=== PATIENT | female | born 1980 | race African-American/Black ===

== ENCOUNTER 2018-07-25 17:51 | Emergency (ER) | payer OTHER ==
[~2018-07-25] VITALS: Ht 160 cm; Wt 98.0 kg
[~2018-07-25 17:51] MED LIST: ALEVE220 MG PO; NORCO 5-325 TA1 EACH PO
[2018-07-25] MEDS ORDERED: CONTRAVE ER 8-1 EACH PO (18:07)
[2018-07-25 18:18] LABS: URINE BILIRUBIN NEGATIVE (Negative); URINE BLOOD 2+ (Negative); URINE CLARITY CLEAR; URINE COLOR YELLOW; URINE GLUCOSE-RANDOM* NEGATIVE (Negative); URINE KETONES NEGATIVE (Negative); URINE LEUKOCYTES-REFLEX NEGATIVE (Negative); URINE NITRITE-REFLEX NEGATIVE (Negative); URINE PROTEIN (DIPSTICK) NEGATIVE (Negative)
[2018-07-25 18:27] LABS: BACTERIA-REFLEX None Seen /HPF (None Seen); CASTS None Seen /LPF (None Seen); CRYSTALS None Seen /LPF (None Seen); SQUAMOUS None Seen /LPF (0-3); URINE RBC 3-10 Few /HPF (0-2); URINE WBC-REFLEX 0-5 Rare /HPF (0-5)
[2018-07-25 19:21] VITALS: BP 142/90
== END 2018-07-25 19:35 | disposition home or self-care (01) ==
LOC: ER 17:51
PROVIDERS: Physician Assistant
DX: Z20.2 Contact with and (suspected) exposure to infections with a predominantly sexual mode of transmission (principal); Z98.890 Other specified postprocedural states

== ENCOUNTER 2018-11-22 18:00 | Emergency (ER) | payer OTHER ==
[~2018-11-22] VITALS: Ht 160 cm; Wt 122.5 kg
[~2018-11-22 18:00] MED LIST changes: +CONTRAVE ER 8-1 EACH PO
[2018-11-22 18:28] LABS: URINE BILIRUBIN NEGATIVE (Negative); URINE BLOOD NEGATIVE (Negative); URINE CLARITY CLEAR; URINE COLOR YELLOW; URINE GLUCOSE-RANDOM* TRACE (Negative); URINE KETONES NEGATIVE (Negative); URINE LEUKOCYTES-REFLEX NEGATIVE (Negative); URINE NITRITE-REFLEX NEGATIVE (Negative); URINE PROTEIN (DIPSTICK) NEGATIVE (Negative); URINE SPECIFIC GRAVITY 1.025 (1.005-1.035)
[2018-11-22 18:42] LABS: ABSOLUTE NEUTROPHILS 5.6 thou/uL (1.4-8.2); BASOPHILS 0.4 % (0.0-2.0); HEMATOCRIT 40.7 % (37.0-47.0); HEMOGLOBIN 13.7 gm/dL (12.0-15.0); LYMPHOCYTES 24.9 % (24.0-44.0); MCH 27.6 pg (26.0-34.0); MCHC 33.6 g/dL (28.0-37.0); MCV 82.2 fL (80.0-100.0); MONOCYTES 5.8 % (1.0-8.0); PLATELET COUNT 254 thou/uL (150-400); POLYS 67.9 % (36.0-66.0); RBC 4.95 mil/uL (4.20-5.00); RDW 16.2 % (10.5-14.5); WBC 8.3 thou/uL (4.0-11.0)
[2018-11-22 18:50] LABS: CALCIUM 9.4 mg/dL (8.5-10.1); CREATININE 0.9 mg/dL (0.6-1.0); POTASSIUM 4.4 mmol/L (3.5-5.1)
[2018-11-22 19:14] LABS: ALBUMIN 3.5 g/dL (3.4-5.0); TOTAL BILIRUBIN 0.5 mg/dL (<0.1-1.0); TOTAL PROTEIN 7.3 g/dL (6.4-8.2)
[2018-11-22] MEDS ORDERED: NORCO 5-325 TA1 EAC1 PO (19:34)
[2018-11-22 19:47] VITALS: BP 124/79
== END 2018-11-22 19:53 | disposition home or self-care (01) ==
LOC: ER 18:00
PROVIDERS: Emergency Medicine; Nurse Practitioner Family
DX: D25.9 Leiomyoma of uterus, unspecified (principal)